=== PATIENT | male | born 1960 | race Caucasian/White ===

== ENCOUNTER 2016-07-06 15:14 | Inpatient (IN) | payer MEDICAID, OTHER ==
[~2016-07-06] VITALS: Ht 182.9 cm; Wt 84.0 kg
[2016-07-06] MEDS ORDERED: LORazepam 2MG/ML-1ML VIAL ONE (15:31)
[2016-07-06] MEDS ORDERED: LORazepam 2MG/ML-1ML VIAL IV ONE ×2 (15:45→18:30)
[2016-07-06 16:11] LABS: Albumin 4.2 g/dL (3.4-5.0); BUN/Creatinine Ratio 4.8; Calcium 8.7 mg/dL (8.5-10.1); Magnesium 2.7 mg/dL (1.6-2.6)
[2016-07-06 16:12] LABS: Basophils # (auto) 0 uL; Basophils % (auto) 0.3 % (0.0-2.0); Eosinophils # (auto) 0 uL; Eosinophils % (auto) 0.2 % (0.0-7.0); Hematocrit 41.3 % (41.0-53.0); Hemoglobin 13.5 g/dL (13.5-17.5); Lymphocytes # (auto) 0.9 uL; Lymphocytes % (auto) 16.8 % (10.0-50.0); Mean Corpuscular Hemoglobin 31.4 pg (28.0-32.0); Mean Corpuscular Hgb Conc. 32.8 g/dL (32.0-36.0); Mean Corpuscular Volume 95.8 fL (80.0-100.0); Mean Platelet Volume 7.2 fL (7.4-10.4); Monocytes # (auto) 0.7 uL; Monocytes % (auto) 12.7 % (0.0-12.0); Neutrophils # (auto) 3.8 uL; Platelet Count (auto) 236 10^3/uL (140-450); Red Cell Distribution Width 14.9 % (11.6-16.0); White Blood Cell 5.4 10^3/uL (4.4-10.8)
[2016-07-06 16:13] LABS: Bilirubin, Total 0.4 mg/dL (0.2-1.0); Total Protein 7.8 g/dL (6.4-8.2)
[2016-07-06 16:17] LABS: Potassium 2.9 mmol/L (3.5-5.1)
[2016-07-06] MEDS ORDERED: LEVOFLOXACIN 500MG 100 ML IV ONE (16:45)
[2016-07-06] MEDS ORDERED: SODIUM CHLORIDE 0.9% 1,000 ML IV ONE (16:45)
[2016-07-06] MEDS ORDERED: ETOMIDATE (2MG/ML) 20ML VIAL IV ONE (17:15)
[2016-07-06] MEDS ORDERED: SUCCINYLCHOLINE CHLORIDE 20 MG/ML 10ML VIAL IV ONE (17:15)
[2016-07-06 17:23] LABS: Lactic Acid 14.6 mmol/L (0.4-2.0)
[2016-07-06 17:24] LABS: REFLEX LACTIC ACID YES OR NO YES
[2016-07-06] MEDS ORDERED: PROPOFOL 100 ML IV ONE (17:39)
[2016-07-06 17:45] VITALS: BP 145/97
[2016-07-06] MEDS: PROPOFOL 100 ML IV SCH (17:47)
[2016-07-06] MEDS: POTASSIUM CHL 20MEQ/100ML 100 ML IV SCH ×2 (18:05→20:10)
[2016-07-06 19:21] LABS: Lactic Acid 10.6 mmol/L (0.4-2.0)
[2016-07-06 19:56] LABS: REFLEX LACTIC ACID YES OR NO YES
[2016-07-06 20:00] VITALS: BP 123/90
[2016-07-06] MEDS ORDERED: LEVETIRACETAM INJ 1,000 MG in SODIUM CHL 0.9% 100 ML IV ONE (20:30)
[2016-07-06] MEDS ORDERED: LORazepam 2MG/ML-1ML VIAL IV PRN (20:30)
[2016-07-06] MEDS ORDERED: PANTOPRAZOLE SODIUM 40 MG/10 ML VIAL IV ONE (20:45)
[2016-07-06] MEDS ORDERED: VANCOMYCIN 1GM/250ML D5W 250 ML IV ONE (21:00)
[2016-07-06] MEDS ORDERED: VANCOMYCIN PER PHARMACY 0 MG IV SCH (21:00)
[2016-07-06 21:14] LABS: Lactic Acid 3.1 mmol/L (0.4-2.0)
[2016-07-06 21:15] LABS: REFLEX LACTIC ACID YES OR NO NO
[2016-07-06] MEDS: SODIUM CHLORIDE 0.9% 1,000 ML IV SCH (21:39)
[2016-07-06] MEDS: ENOXAPARIN SOD 40 MG/0.4 ML SYRINGE SC SCH (21:46)
[2016-07-06 22:15] VITALS: BP 125/85
[2016-07-06] MEDS: MIDAZOLAM DRIP 100 mg/100mL NS 100 ML IV SCH (22:15)
[2016-07-06] MEDS: LEVETIRACETAM INJ 500 MG in SODIUM CHL 0.9% 100 ML IV SCH (22:22)
[2016-07-06] MEDS ORDERED: ONDA4TAB5 PO (22:57)
[2016-07-06] MEDS ORDERED: ALL100T PO (22:57)
[2016-07-06] MEDS ORDERED: PANT40T PO (22:57)
[2016-07-06] MEDS ORDERED: TEMA30CA PO (22:57)
[2016-07-06] MEDS ORDERED: GABA250S2 PO (22:57)
[2016-07-06] MEDS ORDERED: LISI-285 PO (22:57)
[2016-07-06] MEDS ORDERED: NOR5T PO (22:57)
[2016-07-06] MEDS ORDERED: LEV50T PO (22:57)
[2016-07-06] MEDS ORDERED: PANT1INJ3 IV (22:57)
[2016-07-07] VITALS (94 sets, daily range): BP systolic 84–144; BP diastolic 54–89
[2016-07-07] MEDS: PROPOFOL 100 ML IV SCH ×4 (01:19→20:35)
[2016-07-07 04:31] LABS: Basophils # (auto) 0 uL; Basophils % (auto) 0.3 % (0.0-2.0); Eosinophils # (auto) 0 uL; Eosinophils % (auto) 0.2 % (0.0-7.0); Hematocrit 34.3 % (41.0-53.0); Hemoglobin 11.6 g/dL (13.5-17.5); Lymphocytes # (auto) 0.5 uL; Lymphocytes % (auto) 11.1 % (10.0-50.0); Mean Corpuscular Hemoglobin 31.6 pg (28.0-32.0); Mean Corpuscular Hgb Conc. 33.7 g/dL (32.0-36.0); Mean Corpuscular Volume 93.8 fL (80.0-100.0); Mean Platelet Volume 6.6 fL (7.4-10.4); Monocytes # (auto) 0.5 uL; Monocytes % (auto) 11.4 % (0.0-12.0); Neutrophils # (auto) 3.3 uL; Platelet Count (auto) 177 10^3/uL (140-450); Red Cell Distribution Width 14.5 % (11.6-16.0); White Blood Cell 4.2 10^3/uL (4.4-10.8)
[2016-07-07 05:13] LABS: Albumin 3.4 g/dL (3.4-5.0); BUN/Creatinine Ratio 6.3; Bilirubin, Total 0.6 mg/dL (0.2-1.0); Calcium 7.5 mg/dL (8.5-10.1); Potassium 3.2 mmol/L (3.5-5.1); Total Protein 5.8 g/dL (6.4-8.2)
[2016-07-07] MEDS: MIDAZOLAM DRIP 100 mg/100mL NS 100 ML IV SCH ×2 (09:21→20:47)
[2016-07-07] MEDS ORDERED: HCTZ 25 MG TAB NG SCH (10:00)
[2016-07-07] MEDS ORDERED: LISINOPRIL 20 MG TAB NG SCH (10:00)
[2016-07-07] MEDS ORDERED: VANCOMYCIN 1,250 MG in D5W 5% 250 ML IV SCH (10:00)
[2016-07-07] MEDS: SODIUM CHLORIDE 0.9% 1,000 ML IV SCH (10:05)
[2016-07-07] MEDS: LEVETIRACETAM INJ 500 MG in SODIUM CHL 0.9% 100 ML IV SCH ×2 (10:49→22:05)
[2016-07-07] MEDS: ALLOPURINOL 100 MG TAB NG SCH (10:50)
[2016-07-07] MEDS: PANTOPRAZOLE SODIUM 40 MG/10 ML VIAL IV SCH (10:50)
[2016-07-07] MEDS: ENOXAPARIN SOD 40 MG/0.4 ML SYRINGE SC SCH (10:51)
[2016-07-07] MEDS ORDERED: POTASSIUM CHLORIDE 40 MEQ, LIDOCAINE 1% (LOCAL ANESTH.) 4 ML in SODIUM CHL 0.9% 250 ML IV ONE (15:30)
[2016-07-07 21:21] LABS: Urine Bilirubin Negative (Negative); Urine Blood Negative /uL (Negative); Urine Color Colorless (Yellow); Urine Glucose Normal (Normal); Urine Ketone Negative (Negative); Urine Nitrite Negative (Negative); Urine RBC 2 /hpf (0 - 3); Urine Squamous Epithelial Cell FEW /hpf (<5); Urine Urobilinogen Normal (Negative); Urine pH 6.5 (5.0-8.0)
[2016-07-08] VITALS (80 sets, daily range): BP systolic 88–143; BP diastolic 57–100
[2016-07-08] MEDS: PROPOFOL 100 ML IV SCH ×2 (01:48→05:42)
[2016-07-08] MEDS: MIDAZOLAM DRIP 100 mg/100mL NS 100 ML IV SCH (01:48)
[2016-07-08 04:15] LABS: Basophils # (auto) 0 uL; Basophils % (auto) 0.2 % (0.0-2.0); Eosinophils # (auto) 0 uL; Eosinophils % (auto) 0.3 % (0.0-7.0); Hematocrit 33.5 % (41.0-53.0); Hemoglobin 11.1 g/dL (13.5-17.5); Lymphocytes # (auto) 0.7 uL; Lymphocytes % (auto) 15.9 % (10.0-50.0); Mean Corpuscular Hemoglobin 31.3 pg (28.0-32.0); Mean Corpuscular Hgb Conc. 33.1 g/dL (32.0-36.0); Mean Corpuscular Volume 94.5 fL (80.0-100.0); Mean Platelet Volume 7.4 fL (7.4-10.4); Monocytes # (auto) 0.4 uL; Monocytes % (auto) 9.5 % (0.0-12.0); Neutrophils # (auto) 3.1 uL; Neutrophils % (auto) 74.1 % (37.0-80.0); Red Cell Distribution Width 15.2 % (11.6-16.0); White Blood Cell 4.2 10^3/uL (4.4-10.8)
[2016-07-08 04:29] LABS: Platelet Count (auto) 146 10^3/uL (140-450)
[2016-07-08 04:43] LABS: Albumin 3.1 g/dL (3.4-5.0); Bilirubin, Total 0.4 mg/dL (0.2-1.0); Calcium 7.8 mg/dL (8.5-10.1); Total Protein 5.6 g/dL (6.4-8.2)
[2016-07-08] MEDS: PANTOPRAZOLE SODIUM 40 MG/10 ML VIAL IV SCH (09:49)
[2016-07-08] MEDS: ALLOPURINOL 100 MG TAB NG SCH (09:49)
[2016-07-08] MEDS: LEVETIRACETAM INJ 500 MG in SODIUM CHL 0.9% 100 ML IV SCH ×2 (09:49→22:33)
[2016-07-08] MEDS: ENOXAPARIN SOD 40 MG/0.4 ML SYRINGE SC SCH (10:00)
[2016-07-08] MEDS: POTASSIUM CHL 20MEQ/100ML 100 ML IV SCH ×2 (12:43→14:00)
[2016-07-08] MEDS: HYDROcodone-ACET 5/325MG TAB PO PRN (22:52)
[2016-07-09] MEDS ORDERED: TEMAZEPAM 15 MG CAP PO PRN (00:45)
[2016-07-09 04:58] VITALS: BP 119/74
[2016-07-09] MEDS: HYDROcodone-ACET 5/325MG TAB PO PRN ×2 (05:10→11:13)
[2016-07-09 08:22] LABS: Basophils # (auto) 0 uL; Basophils % (auto) 0.3 % (0.0-2.0); Eosinophils # (auto) 0.1 uL; Eosinophils % (auto) 1.4 % (0.0-7.0); Hematocrit 35.1 % (41.0-53.0); Hemoglobin 11.7 g/dL (13.5-17.5); Lymphocytes # (auto) 0.8 uL; Lymphocytes % (auto) 19.1 % (10.0-50.0); Mean Corpuscular Hemoglobin 31.4 pg (28.0-32.0); Mean Corpuscular Hgb Conc. 33.3 g/dL (32.0-36.0); Mean Corpuscular Volume 94.3 fL (80.0-100.0); Mean Platelet Volume 6.7 fL (7.4-10.4); Monocytes # (auto) 0.5 uL; Monocytes % (auto) 12.3 % (0.0-12.0); Neutrophils # (auto) 2.9 uL; Neutrophils % (auto) 66.9 % (37.0-80.0); Platelet Count (auto) 167 10^3/uL (140-450); Red Cell Distribution Width 15.1 % (11.6-16.0); White Blood Cell 4.3 10^3/uL (4.4-10.8)
[2016-07-09 08:39] LABS: BUN/Creatinine Ratio 5.8; Calcium 8.4 mg/dL (8.5-10.1)
[2016-07-09] MEDS: ENOXAPARIN SOD 40 MG/0.4 ML SYRINGE SC SCH (09:20)
[2016-07-09] MEDS: ALLOPURINOL 100 MG TAB NG SCH (09:20)
[2016-07-09] MEDS: PANTOPRAZOLE SODIUM 40 MG/10 ML VIAL IV SCH (09:20)
[2016-07-09 09:24] VITALS: BP 148/83
[2016-07-09] MEDS ORDERED: LEVETIRACETAM 500 MG TAB PO SCH (10:00)
[2016-07-09 13:18] VITALS: BP 139/97
[2016-07-09 13:26] VITALS: BP 113/86
[2016-07-09] MEDS ORDERED: GABAPENTIN 100 MG CAP PO SCH (14:00)
== END 2016-07-09 15:15 | disposition home or self-care (01) | DRG 720 ==
LOC: ER 15:21 → TELE 15:22 → ICU WEST 23:57 → TELE-WESTW 07-08 19:40
PROVIDERS: ADMIT Internal Medicine; ATTEND Family Medicine
PROC: 5A1945Z Respiratory Ventilation, 24-96 Consecutive Hours (ICD-10-PCS; principal; 2016-07-06)
PROC: 0BH18EZ Insertion of Endotracheal Airway into Trachea, Via Natural or Artificial Opening Endoscopic (ICD-10-PCS; 2016-07-06)
DX: A41.9 Sepsis, unspecified organism (principal); J96.00 Acute respiratory failure, unspecified whether with hypoxia or hypercapnia; G04.90 Encephalitis and encephalomyelitis, unspecified; K56.60 Unspecified intestinal obstruction; G40.211 Localization-related (focal) (partial) symptomatic epilepsy and epileptic syndromes with complex partial seizures, intractable, with status epilepticus; E87.8 Other disorders of electrolyte and fluid balance, not elsewhere classified; E87.1 Hypo-osmolality and hyponatremia; E87.6 Hypokalemia; M10.9 Gout, unspecified; I10 Essential (primary) hypertension; E03.9 Hypothyroidism, unspecified; Z98.2 Presence of cerebrospinal fluid drainage device
CPT/HCPCS: 31500; 36415; 36600; 62270; 70450; 71010; 74176; 80048; 80053; 80061; 80320; 81001; 82805; 82962; 83605; 83735; 84443; 85025; 85049; 87040; 87070; 87077; 87081; 87186; 87205; 94002; 94003; 96361; 96365; 96375; 96376; 99291; C9113; J0330; J1956; J2001; J2704; J3480; J7060

== ENCOUNTER 2017-12-09 16:31 | Inpatient (IN) | payer MEDICARE, MEDICAID ==
[~2017-12-09] VITALS: Ht 185.4 cm; Wt 79.4 kg
[~2017-12-09 16:31] MED LIST: ALL100T PO; GABA250S2 PO; HYDR-4683 PO; LEV50T PO; LISI-285 PO; ONDA4TAB5 PO; PANT1INJ3 IV; PANT40T PO; TEMA30CA PO
[2017-12-09] MEDS ORDERED: SODIUM CHLORIDE 0.9% 1,000 ML IVB ONE (16:34)
[2017-12-09] MEDS ORDERED: LORazepam 2MG/ML-1ML VIAL ONE (16:48)
[2017-12-09] MEDS ORDERED: LEVETIRACETAM INJ 1,000 MG in D5W 5% 100 ML IV ONE (17:00)
[2017-12-09 17:24] LABS: Basophils # (auto) 0 uL; Basophils % (auto) 0.1 % (0.0-2.0); Eosinophils # (auto) 0 uL; Hematocrit 33.6 % (41.0-53.0); Hemoglobin 10.8 g/dL (13.5-17.5); Lymphocytes # (auto) 0.4 uL; Lymphocytes % (auto) 6.2 % (10.0-50.0); Mean Corpuscular Hemoglobin 29.6 pg (28.0-32.0); Mean Corpuscular Hgb Conc. 32.2 g/dL (32.0-36.0); Monocytes # (auto) 0.5 uL; Monocytes % (auto) 7.1 % (0.0-12.0); Neutrophils # (auto) 6.1 uL; Neutrophils % (auto) 86.6 % (37.0-80.0); Platelet Count (auto) 219 10^3/uL (140-450); Red Blood Cells 3.65 10^6/uL (4.5-5.90); White Blood Cell 7.1 10^3/uL (4.4-10.8)
[2017-12-09 17:30] LABS: Albumin 3.7 g/dL (3.4-5.0); BUN/Creatinine Ratio 9.4; Calcium 8.3 mg/dL (8.5-10.1); Potassium 4.1 mmol/L (3.5-5.1)
[2017-12-09 17:33] LABS: Bilirubin, Total 0.3 mg/dL (0.2-1.0); Total Protein 6.9 g/dL (6.4-8.2)
[2017-12-09 21:25] LABS: Amphetamine Screen, Urine NEGATIVE (NEGATIVE); Barbiturate Scree,Urine NEGATIVE (NEGATIVE); Benzodiazephine Screen, Urine POSITIVE (NEGATIVE); Cannabinoid Screen, Urine POSITIVE (NEGATIVE); Cocaine Screen, Urine NEGATIVE (NEGATIVE); Opiate Scree,Urine POSITIVE (NEGATIVE); Phencyclidine Screen, Urine NEGATIVE (NEGATIVE)
[2017-12-09] MEDS ORDERED: LORazepam 2MG/ML-1ML VIAL IV PRN ×2 (21:45)
[2017-12-09] MEDS ORDERED: ONDANSETRON HCL 4 MG/2 ML VIAL IV PRN (21:45)
[2017-12-09] MEDS ORDERED: HYDROcodone-ACET 5/325MG TAB PO PRN (21:45)
[2017-12-09] MEDS ORDERED: ACETAMINOPHEN 500 MG TAB PO PRN (21:45)
[2017-12-09] MEDS ORDERED: TEMAZEPAM 15 MG CAP PO PRN (21:45)
[2017-12-09] MEDS ORDERED: GABAPENTIN 300 MG CAP PO SCH (22:00)
[2017-12-09] MEDS ORDERED: ZONISAMIDE 400 MG PO SCH (22:00)
[2017-12-09 22:10] LABS: Urine Bacteria NONE SEEN /hpf (None Seen); Urine Blood TRACE /uL (Negative); Urine Mucus FEW (None Seen); Urine Specific Gravity 1.007 (1.001-1.035); Urine WBC 3 /hpf (0 - 3)
[2017-12-09] MEDS: GABAPENTIN 300 MG CAP PO SCH (22:11)
[2017-12-10] MEDS ORDERED: TEMAZEPAM 15 MG CAP PO PRN (03:45)
[2017-12-10] MEDS ORDERED: SODIUM CHLORIDE 0.9% 1,000 ML IV SCH (03:45)
[2017-12-10 05:45] LABS: Basophils # (auto) 0 uL; Basophils % (auto) 0.3 % (0.0-2.0); Eosinophils # (auto) 0 uL; Hematocrit 30.2 % (41.0-53.0); Hemoglobin 10.3 g/dL (13.5-17.5); Lymphocytes # (auto) 0.6 uL; Lymphocytes % (auto) 13.3 % (10.0-50.0); Mean Corpuscular Hemoglobin 30.3 pg (28.0-32.0); Mean Corpuscular Hgb Conc. 33.9 g/dL (32.0-36.0); Mean Corpuscular Volume 89.2 fL (80.0-100.0); Monocytes # (auto) 0.5 uL; Monocytes % (auto) 11.9 % (0.0-12.0); Neutrophils # (auto) 3.4 uL; Neutrophils % (auto) 74.5 % (37.0-80.0); Platelet Count (auto) 182 10^3/uL (140-450); Red Blood Cells 3.39 10^6/uL (4.5-5.90); Red Cell Distribution Width 13.9 % (11.8-14.3); White Blood Cell 4.6 10^3/uL (4.4-10.8)
[2017-12-10 06:08] LABS: BUN/Creatinine Ratio 11.9; Calcium 8.3 mg/dL (8.5-10.1); Potassium 3.9 mmol/L (3.5-5.1)
[2017-12-10] MEDS: GABAPENTIN 300 MG CAP PO SCH (06:49)
[2017-12-10] MEDS ORDERED: LEVOTHYROXINE SODIUM 50 MCG TAB PO SCH (07:00)
[2017-12-10] MEDS ORDERED: PANTOPRAZOLE 40 MG TAB PO SCH (10:00)
[2017-12-10] MEDS ORDERED: ZONISAMIDE 200 MG PO SCH (10:00)
[2017-12-10] MEDS ORDERED: ALLOPURINOL 100 MG TAB PO SCH (10:00)
[2017-12-10] MEDS ORDERED: LISINOPRIL 20 MG TAB PO SCH (10:00)
[2017-12-10 11:02] VITALS: BP 117/70
[2017-12-10] MEDS ORDERED: THIAMINE INJ 100 MG, MULTIPLE VITAMIN 10 ML, FOLIC ACID 1 MG, MAGNESIUM SULF SDV 50% 8 ... IV SCH ×5 (12:00)
== END 2017-12-10 13:46 | disposition left against medical advice (07) | DRG 101 ==
LOC: EDBD 16:31 → ER 16:34 → OVERFLOW 16:35
PROVIDERS: ADMIT Nurse Practitioner Family; ATTEND Family Medicine
DX: G40.901 Epilepsy, unspecified, not intractable, with status epilepticus (principal); F10.239 Alcohol dependence with withdrawal, unspecified; G03.1 Chronic meningitis; D64.9 Anemia, unspecified; E03.9 Hypothyroidism, unspecified; F02.80 Dementia in other diseases classified elsewhere, unspecified severity, without behavioral disturbance, psychotic disturbance, mood disturbance, and anxiety; F09 Unspecified mental disorder due to known physiological condition; F12.10 Cannabis abuse, uncomplicated; H55.00 Unspecified nystagmus; I10 Essential (primary) hypertension; M10.9 Gout, unspecified; Z79.899 Other long term (current) drug therapy; Z86.61 Personal history of infections of the central nervous system; Z98.2 Presence of cerebrospinal fluid drainage device
CPT/HCPCS: 36415; 70450; 80048; 80053; 80185; 80307; 80320; 81001; 83735; 84443; 85025; 93005; 94761; 96361; 96365; 96367; 99291; J7060

== ENCOUNTER 2018-06-11 11:41 | Emergency (ER) | payer MEDICAID, MEDICARE ==
[~2018-06-11] VITALS: Ht 177.8 cm; Wt 70.3 kg
[2018-06-11 12:38] VITALS: BP 119/88
[2018-06-11] MEDS ORDERED: LIDOCAINE 1% HCL (LOCAL ANESTH.) INJ 20ML MDV ONE (12:42)
[2018-06-11] MEDS ORDERED: HYDROcodone-ACET 5/325MG TAB PO ONE (14:15)
== END 2018-06-11 14:19 | disposition home or self-care (01) ==
LOC: ER 11:45
DX: S01.01XA Laceration without foreign body of scalp, initial encounter (principal); S01.81XA Laceration without foreign body of other part of head, initial encounter; G93.89 Other specified disorders of brain; I10 Essential (primary) hypertension; E07.9 Disorder of thyroid, unspecified; M10.9 Gout, unspecified; Z79.899 Other long term (current) drug therapy; W18.39XA Other fall on same level, initial encounter; Y93.89 Activity, other specified; Y99.8 Other external cause status; Y92.89 Other specified places as the place of occurrence of the external cause
CPT/HCPCS: 12004; 12014; 70450; 99284; J2001

== ENCOUNTER 2018-08-07 18:25 | Emergency (ER) | payer MEDICARE ==
[~2018-08-07] VITALS: Ht 182.9 cm; Wt 65.8 kg
[2018-08-07] MEDS ORDERED: SODIUM CHLORIDE 0.9% 1,000 ML IVB ONE (18:45)
[2018-08-07 19:12] LABS: Basophils # (auto) 0 uL; Basophils % (auto) 0.9 % (0.0-2.0); Eosinophils # (auto) 0 uL; Eosinophils % (auto) 1.6 % (0.0-7.0); Hematocrit 31.1 % (41.0-53.0); Hemoglobin 10.1 g/dL (13.5-17.5); Lymphocytes # (auto) 0.5 uL; Lymphocytes % (auto) 17.7 % (10.0-50.0); Mean Corpuscular Hemoglobin 28.6 pg (28.0-32.0); Mean Corpuscular Hgb Conc. 32.4 g/dL (32.0-36.0); Mean Corpuscular Volume 88.1 fL (80.0-100.0); Monocytes # (auto) 0.3 uL; Monocytes % (auto) 9.1 % (0.0-12.0); Neutrophils # (auto) 2.2 uL; Neutrophils % (auto) 70.7 % (37.0-80.0); Nucleated Red Blood Cells % 0.1 %; Platelet Count (auto) 204 10^3/uL (140-450); Red Blood Cells 3.53 10^6/uL (4.5-5.90); Red Cell Distribution Width 16.1 % (11.8-14.3); White Blood Cell 3.1 10^3/uL (4.4-10.8)
[2018-08-07 19:26] LABS: Albumin 3.5 g/dL (3.4-5.0); Calcium 8.3 mg/dL (8.5-10.1); Potassium 4.2 mmol/L (3.5-5.1)
[2018-08-07 19:30] LABS: BUN/Creatinine Ratio 6.5; Bilirubin, Total 0.3 mg/dL (0.2-1.0); Total Protein 6.9 g/dL (6.4-8.2)
[2018-08-07 21:20] VITALS: BP 152/103
== END 2018-08-07 21:36 | disposition home or self-care (01) ==
LOC: EDBD 18:25 → ER 18:36
DX: G40.909 Epilepsy, unspecified, not intractable, without status epilepticus (principal); K21.9 Gastro-esophageal reflux disease without esophagitis; I10 Essential (primary) hypertension; E07.9 Disorder of thyroid, unspecified; M10.9 Gout, unspecified
CPT/HCPCS: 36415; 70450; 80053; 85025; 93005

== ENCOUNTER 2018-08-07 22:51 | Inpatient (IN) | payer MEDICARE ==
[~2018-08-07] VITALS: Ht 182.9 cm; Wt 72.5 kg
[2018-08-07] MEDS ORDERED: LORazepam 2MG/ML-1ML VIAL IV PRN (23:00)
[2018-08-07] MEDS ORDERED: LEVETIRACETAM INJ 1,000 MG in D5W 5% 100 ML IV ONE (23:00)
[2018-08-07 23:23] LABS: Basophils # (auto) 0 uL; Basophils % (auto) 0.6 % (0.0-2.0); Eosinophils # (auto) 0 uL; Eosinophils % (auto) 0.5 % (0.0-7.0); Hematocrit 34.5 % (41.0-53.0); Lymphocytes # (auto) 0.7 uL; Mean Corpuscular Hemoglobin 28.6 pg (28.0-32.0); Mean Corpuscular Hgb Conc. 31.9 g/dL (32.0-36.0); Mean Corpuscular Volume 89.8 fL (80.0-100.0); Monocytes # (auto) 0.5 uL; Monocytes % (auto) 9.6 % (0.0-12.0); Neutrophils # (auto) 3.5 uL; Neutrophils % (auto) 75.3 % (37.0-80.0); Nucleated Red Blood Cells % 0.1 %; Platelet Count (auto) 228 10^3/uL (140-450); Red Blood Cells 3.84 10^6/uL (4.5-5.90); Red Cell Distribution Width 15.9 % (11.8-14.3); White Blood Cell 4.7 10^3/uL (4.4-10.8)
[2018-08-07 23:41] LABS: Alanine Aminotransferase 21 U/L (16-61); Albumin 3.7 g/dL (3.4-5.0); Anion Gap 16 (5-15); Aspartate Aminotransferase 20 U/L (15-37); BUN/Creatinine Ratio 5.7; Blood Alcohol < 3.0 mg/dL (0-5); Blood Urea Nitrogen 7 mg/dL (7-18); Calcium 8.6 mg/dL (8.5-10.1); Carbon Dioxide 17 mmol/L (21-32); Chloride 101 mmol/L (98-107); GFR African American 79 mL/min; GFR Non-African American 65 mL/min; Glucose 112 mg/dL (74-106); Magnesium 2.1 mg/dL (1.6-2.6); Potassium 4.7 mmol/L (3.5-5.1); Sodium 134 mmol/L (136-145)
[2018-08-07 23:43] LABS: INR 1.03 (0.9-1.15); Partial Thromboplastin Time 26.6 sec (23.78-33.04)
[2018-08-07 23:45] LABS: Alkaline Phosphatase 120 U/L (45-117); Bilirubin, Total 0.3 mg/dL (0.2-1.0); Total Protein 7.6 g/dL (6.4-8.2)
[2018-08-07 23:46] LABS: Phenytoin (Dilantin) 0.5 ug/mL (10-20)
[2018-08-07] MEDS ORDERED: LEVETIRACETAM 500 MG/5ML INJ IV ONE (23:48)
[2018-08-07] MEDS ORDERED: ACETAMINOPHEN 650 MG RECT SUPP PR ONE (23:48)
[2018-08-07 23:49] LABS: Alcohol, Urine < 3.0 mg/dL (0-5); Amphetamine Screen, Urine NEGATIVE (NEGATIVE); Barbiturate Scree,Urine NEGATIVE (NEGATIVE); Benzodiazephine Screen, Urine POSITIVE (NEGATIVE); Cannabinoid Screen, Urine POSITIVE (NEGATIVE); Cocaine Screen, Urine NEGATIVE (NEGATIVE); Opiate Scree,Urine NEGATIVE (NEGATIVE); Phencyclidine Screen, Urine NEGATIVE (NEGATIVE)
[2018-08-08] MEDS ORDERED: ACETAMINOPHEN 650 MG RECT SUPP PR ONE (00:15)
[2018-08-08] MEDS ORDERED: SODIUM CHLORIDE 0.9% 2,000 ML IV ONE (02:15)
[2018-08-08] MEDS ORDERED: cefTRIAXone 1GM/50ML D5W 50 ML IV ONE (02:15)
[2018-08-08] MEDS ORDERED: VANCOMYCIN 1GM/250ML 250 ML IV ONE (02:15)
[2018-08-08] MEDS ORDERED: ONDANSETRON HCL 4 MG/2 ML VIAL IV PRN (02:45)
[2018-08-08] MEDS ORDERED: TEMAZEPAM 15 MG CAP PO PRN (02:45)
[2018-08-08] MEDS ORDERED: LORazepam 2MG/ML-1ML VIAL IV PRN (02:45)
[2018-08-08] MEDS ORDERED: ACETAMINOPHEN 325 MG TAB PO PRN (02:45)
[2018-08-08] MEDS ORDERED: LABETALOL HCL 5 MG/ML ML 20ML VIAL IV ONE (02:45)
[2018-08-08 03:20] LABS: Urine Bacteria NONE SEEN /hpf (None Seen); Urine Blood TRACE /uL (Negative); Urine Mucus FEW (None Seen); Urine Specific Gravity 1.013 (1.001-1.035); Urine WBC 2 /hpf (0 - 3)
[2018-08-08] MEDS: GABAPENTIN 300 MG CAP PO SCH ×2 (06:30→13:57)
[2018-08-08] MEDS: LEVOTHYROXINE SODIUM 50 MCG TAB PO SCH (06:31)
[2018-08-08] MEDS ORDERED: LEVETIRACETAM 500 MG TAB PO SCH (10:00)
[2018-08-08] MEDS: FAMOTIDINE 20 MG TAB PO SCH ×2 (10:23→21:50)
[2018-08-08] MEDS: LISINOPRIL 10 MG TAB PO SCH (10:23)
--- NOTE | 2018-08-08 15:10 | NUR ---
ADMISSION THE PATIENT WAS ADMITTED TO MED/SURG AFTER RECEIVING REPORT FROM THE ER NURSE. THE PATIENT IS ALERT TO SELF AND SITUATION, NO SIGNS OR SYMPTOMS OF DISTRESS. THE PATIENT HAD A CHESTER PLACED IN THE ED, WHICH IS DRAINING YELLOW URINE. THE PATIENT'S BED RAILS ARE PADDED, SEIZURE PRECAUTIONS ARE BEING TAKEN. EDUCATED THE PATIENT ON POC, BUT WILL NEED REORIENTING. THE BED IS IN THE LOWEST, LOCKED POSITION, BED ALARM ON AND CALL LIGHT IS WITHIN REACH. WILL ROUND HOURLY AND PRN. WILL CONTINUE TO MONITOR.
[2018-08-08 17:00] VITALS: BP 106/88
[2018-08-08] MEDS: MULTIPLE VITAMIN 10 ML, MAGNESIUM SULF SDV 50% 8 MEQ in SODIUM CHLORIDE 0.9% 1,000 ML IV SCH (18:00)
[2018-08-08 20:00] VITALS: BP 123/84
[2018-08-08] MEDS: Zonisamide 100 MG CAPSULE PO SCH (21:50)
[2018-08-08] MEDS: GABAPENTIN 400 MG CAP PO SCH (21:50)
[2018-08-08 22:00] VITALS: BP 123/84
[2018-08-09 05:00] VITALS: BP 128/80
[2018-08-09] MEDS: GABAPENTIN 400 MG CAP PO SCH (06:01)
[2018-08-09] MEDS: LEVOTHYROXINE SODIUM 50 MCG TAB PO SCH (06:01)
--- NOTE | 2018-08-09 07:00 | NUR ---
Opening Shift Note Assumed care of patient, awake and alert. No S/S of distress/SOB or pain. Instructed on POC and to call for assist PRN, will continue to monitor for changes Q1hr and PRN.
[2018-08-09 07:25] LABS: Basophils # (auto) 0 uL; Basophils % (auto) 1.2 % (0.0-2.0); Eosinophils # (auto) 0 uL; Hematocrit 29.3 % (41.0-53.0); Hemoglobin 10.1 g/dL (13.5-17.5); Lymphocytes # (auto) 0.9 uL; Lymphocytes % (auto) 25.2 % (10.0-50.0); Mean Corpuscular Hemoglobin 30.1 pg (28.0-32.0); Mean Corpuscular Hgb Conc. 34.5 g/dL (32.0-36.0); Mean Corpuscular Volume 87.1 fL (80.0-100.0); Monocytes # (auto) 0.5 uL; Neutrophils # (auto) 2.2 uL; Neutrophils % (auto) 58.6 % (37.0-80.0); Nucleated Red Blood Cells % 0.1 %; Platelet Count (auto) 207 10^3/uL (140-450); Red Blood Cells 3.36 10^6/uL (4.5-5.90); White Blood Cell 3.7 10^3/uL (4.4-10.8)
[2018-08-09 07:31] LABS: BUN/Creatinine Ratio 7.9; Potassium 3.6 mmol/L (3.5-5.1)
--- NOTE | 2018-08-09 08:20 | NUR ---
patient pulled out his iv when it got caught on his blankets.
--- NOTE | 2018-08-09 08:24 | NUR ---
patient is refusing a new iv until he speaks to the doctor. patient states, "I am going home today." educated patient on importance of iv. patient verbalized understanding.
[2018-08-09 09:00] VITALS: BP 112/67
[2018-08-09] MEDS: Zonisamide 100 MG CAPSULE PO SCH ×3 (10:00→21:21)
--- NOTE | 2018-08-09 10:52 | NUR ---
PT Patient having EEG during morning PT visit. Addendum: 08/09/18 at 1053 by DEAN GARNER PTT Amended: Links added.
[2018-08-09] MEDS: FAMOTIDINE 20 MG TAB PO SCH ×2 (11:47→21:19)
[2018-08-09] MEDS: LISINOPRIL 10 MG TAB PO SCH (11:47)
[2018-08-09] MEDS: HYDROcodone-ACET 10/325MG TAB PO PRN ×3 (11:49→22:02)
[2018-08-09 13:00] VITALS: BP 114/76
[2018-08-09] MEDS: GABAPENTIN 300 MG CAP PO SCH ×2 (15:55→21:19)
[2018-08-09 17:27] VITALS: BP 125/81
[2018-08-09] MEDS: MULTIPLE VITAMIN 10 ML, MAGNESIUM SULF SDV 50% 8 MEQ in SODIUM CHLORIDE 0.9% 1,000 ML IV SCH (17:54)
--- NOTE | 2018-08-09 19:15 | NUR ---
Opening Shift Note Assumed care of patient, awake and alert. No S/S of distress/SOB or pain. Instructed on POC and to call for assist PRN, will continue to monitor for changes Q1hr and PRN. Bed in low position, call castellano with in reach. Denies seizure symptoms.
[2018-08-09 22:00] VITALS: BP_SYST 128; BP_SYST 138; BP_DIAS 77; BP_DIAS 84
[2018-08-10 06:00] VITALS: BP 136/89
[2018-08-10] MEDS: GABAPENTIN 300 MG CAP PO SCH ×3 (06:16→20:23)
[2018-08-10] MEDS: LEVOTHYROXINE SODIUM 50 MCG TAB PO SCH (06:16)
[2018-08-10] MEDS: HYDROcodone-ACET 10/325MG TAB PO PRN ×3 (06:21→20:23)
[2018-08-10 09:00] VITALS: BP 147/104
[2018-08-10] MEDS: Zonisamide 100 MG CAPSULE PO SCH ×2 (09:58→20:24)
[2018-08-10] MEDS: FAMOTIDINE 20 MG TAB PO SCH ×2 (09:58→20:23)
[2018-08-10] MEDS: LISINOPRIL 10 MG TAB PO SCH (09:59)
[2018-08-10] MEDS: ALLOPURINOL 100 MG TAB PO SCH (10:01)
[2018-08-10] MEDS ORDERED: TEMAZEPAM 15 MG CAP PO PRN (15:30)
[2018-08-10 17:00] VITALS: BP 142/76
[2018-08-10] MEDS: MULTIPLE VITAMIN 10 ML, MAGNESIUM SULF SDV 50% 8 MEQ in SODIUM CHLORIDE 0.9% 1,000 ML IV SCH (17:21)
[2018-08-10 22:00] VITALS: BP 131/79
[2018-08-11] MEDS: Zonisamide 100 MG CAPSULE PO SCH ×3 (00:12→10:28)
[2018-08-11 05:06] VITALS: BP 111/62
[2018-08-11] MEDS: GABAPENTIN 300 MG CAP PO SCH (06:15)
[2018-08-11] MEDS: LEVOTHYROXINE SODIUM 50 MCG TAB PO SCH (06:16)
--- NOTE | 2018-08-11 07:30 | NUR ---
OPENING NOTE ASSUMED CARE OF PATIENT. PT IS SITTING ON BED, AWAKE, [id number]. A&O x4. ON ROOM AIR, O2 SATURATION 99%. NO SIGNS OF SOB/DISTRESS NOTED. CHESTER CATH INTACT, PATENT DRAINING YELLOW URINE WITH SEDIMENT. SAFETY PRECAUTIONS IN PLACE INCLUDING, BED SET TO LOWEST POSITION/LOCKED. BEDSIDE RAILS UP X2. CALL LIGHT WITHIN REACH. INSTRUCTED PT TO CALL FOR ASSISTANCE. DISCUSSED POC WITH PT. PT VERBALIZED UNDERSTANDING. WILL CONTINUE TO MONITOR Q 1HR AND PRN.
[2018-08-11 09:01] VITALS: BP 131/87
[2018-08-11] MEDS: ALLOPURINOL 100 MG TAB PO SCH (10:24)
[2018-08-11] MEDS: LISINOPRIL 10 MG TAB PO SCH (10:24)
[2018-08-11] MEDS: FAMOTIDINE 20 MG TAB PO SCH (10:24)
[2018-08-11] MEDS: HYDROcodone-ACET 10/325MG TAB PO PRN (10:32)
--- NOTE | 2018-08-11 12:04 | NUR ---
Marcelo catheter dc'd Order to discontinue Marcelo catheter. Amrcelo dc'd with clean technique following deflation of balloon 9 ml. Patient tolerated well with no complaints of pain. 700 ml of yellow urine. Continue care.
[2018-08-11 12:27] VITALS: BP 125/90
[2018-08-11 12:57] VITALS: BP 118/90
--- NOTE | 2018-08-11 13:16 | NUR ---
Discharge instructions given as ordered. Encourage to follow up with Dr. Maira Rucker, [id number], [place], [place], . All questions and concerns addressed with patient. Patient verbalized understanding. Home medications held in Pharmacy returned to patient, and no vaccines given. IV removed with catheter intact, pressure dressing applied.
--- NOTE | 2018-08-11 13:45 | NUR ---
Patient ambulated to vehicle via wheelchair with all personal belongings, accompanied by staff and family member. No distress noted at time of departure.
== END 2018-08-11 13:45 | disposition home health service (06) | DRG 100 ==
LOC: ER 22:51 → EDBD 22:51 → OVERFLOW 08-08 02:43 → WEST WING 08-08 14:53
PROVIDERS: ADMIT Nurse Practitioner; ATTEND Family Medicine
DX: G40.409 Other generalized epilepsy and epileptic syndromes, not intractable, without status epilepticus (principal); G04.90 Encephalitis and encephalomyelitis, unspecified; G93.41 Metabolic encephalopathy; G93.6 Cerebral edema; I10 Essential (primary) hypertension; M10.9 Gout, unspecified; F03.90 Unspecified dementia, unspecified severity, without behavioral disturbance, psychotic disturbance, mood disturbance, and anxiety; F09 Unspecified mental disorder due to known physiological condition; F12.90 Cannabis use, unspecified, uncomplicated; E03.9 Hypothyroidism, unspecified; I70.0 Atherosclerosis of aorta; K21.9 Gastro-esophageal reflux disease without esophagitis; Z79.899 Other long term (current) drug therapy; Z86.61 Personal history of infections of the central nervous system; Z98.2 Presence of cerebrospinal fluid drainage device; Z88.1 Allergy status to other antibiotic agents
CPT/HCPCS: 36415; 36600; 51702; 70450; 71045; 80048; 80053; 80164; 80185; 80307; 80320; 81001; 82805; 83605; 83735; 85025; 85610; 85730; 87040; 93005; 94761; 95819; 96361; 96365; 96367; G0378; J0696; J7060

== ENCOUNTER 2018-09-08 01:18 | Emergency (ER) | payer MEDICARE ==
[~2018-09-08] VITALS: Ht 177.8 cm; Wt 77.1 kg
[2018-09-08] MEDS ORDERED: LORazepam 2MG/ML-1ML VIAL IV ONE ×3 (01:45→09:00)
[2018-09-08 02:28] LABS: INR 1.03 (0.9-1.15); Partial Thromboplastin Time 24.6 sec (23.78-33.04)
[2018-09-08 02:29] LABS: Alanine Aminotransferase 14 U/L (16-61); Albumin 3.2 g/dL (3.4-5.0); Anion Gap 10 (5-15); Aspartate Aminotransferase 14 U/L (15-37); BUN/Creatinine Ratio 17.2; Blood Alcohol < 3.0 mg/dL (0-5); Blood Urea Nitrogen 17 mg/dL (7-18); Carbon Dioxide 22 mmol/L (21-32); Chloride 101 mmol/L (98-107); GFR African American 100 mL/min; GFR Non-African American 83 mL/min; Glucose 90 mg/dL (74-106); Magnesium 2.2 mg/dL (1.6-2.6); Potassium 4.2 mmol/L (3.5-5.1); Sodium 133 mmol/L (136-145)
[2018-09-08 02:31] LABS: Alkaline Phosphatase 105 U/L (45-117); Bilirubin, Total 0.3 mg/dL (0.2-1.0); Phenytoin (Dilantin) < 0.4 ug/mL (10-20); Total Protein 6.6 g/dL (6.4-8.2); Valproic Acid (Depakene) 4 ug/mL (50-100)
[2018-09-08 02:37] LABS: Basophils # (auto) 0 uL; Basophils % (auto) 0.7 % (0.0-2.0); Eosinophils # (auto) 0.1 uL; Eosinophils % (auto) 2.4 % (0.0-7.0); Hemoglobin 9.4 g/dL (13.5-17.5); Lymphocytes # (auto) 0.7 uL; Lymphocytes % (auto) 22.1 % (10.0-50.0); Mean Corpuscular Hemoglobin 28.9 pg (28.0-32.0); Mean Corpuscular Hgb Conc. 33.5 g/dL (32.0-36.0); Mean Corpuscular Volume 86.1 fL (80.0-100.0); Monocytes # (auto) 0.3 uL; Monocytes % (auto) 9.2 % (0.0-12.0); Neutrophils # (auto) 2.2 uL; Neutrophils % (auto) 65.6 % (37.0-80.0); Platelet Count (auto) 198 10^3/uL (140-450); Red Blood Cells 3.25 10^6/uL (4.5-5.90); Red Cell Distribution Width 16.1 % (11.8-14.3); White Blood Cell 3.3 10^3/uL (4.4-10.8)
[2018-09-08 09:13] LABS: Urine Bacteria NONE SEEN /hpf (None Seen); Urine Blood Negative /uL (Negative); Urine WBC 1 /hpf (0 - 3)
[2018-09-08 09:26] LABS: Alcohol, Urine < 3.0 mg/dL (0-5); Amphetamine Screen, Urine NEGATIVE (NEGATIVE); Barbiturate Scree,Urine NEGATIVE (NEGATIVE); Benzodiazephine Screen, Urine POSITIVE (NEGATIVE); Cannabinoid Screen, Urine POSITIVE (NEGATIVE); Cocaine Screen, Urine NEGATIVE (NEGATIVE); Opiate Scree,Urine NEGATIVE (NEGATIVE); Phencyclidine Screen, Urine NEGATIVE (NEGATIVE)
[2018-09-08] MEDS ORDERED: GABAPENTIN 300 MG CAP PO ONE (12:00)
[2018-09-08 13:17] VITALS: BP 119/84
== END 2018-09-08 13:32 | disposition short-term general hospital (02) ==
LOC: EDBD 01:18 → ER 01:24
DX: S22.019A Unspecified fracture of first thoracic vertebra, initial encounter for closed fracture (principal); S00.93XA Contusion of unspecified part of head, initial encounter; S50.312A Abrasion of left elbow, initial encounter; R56.9 Unspecified convulsions; K21.9 Gastro-esophageal reflux disease without esophagitis; I10 Essential (primary) hypertension; M10.9 Gout, unspecified; W18.39XA Other fall on same level, initial encounter; Y93.89 Activity, other specified; Y92.89 Other specified places as the place of occurrence of the external cause; Y99.8 Other external cause status
CPT/HCPCS: 36415; 51702; 70450; 71045; 72125; 80053; 80164; 80185; 80307; 80320; 81001; 83735; 85025; 85610; 85730; 96374; 96376; 99285; J2060; 51701

== ENCOUNTER 2018-12-07 12:59 | Emergency (ER) | payer MEDICARE ==
[~2018-12-07] VITALS: Ht 177.8 cm; Wt 72.6 kg
[2018-12-07] MEDS ORDERED: LORazepam 2MG/ML-1ML VIAL IV ONE (13:15)
[2018-12-07] MEDS ORDERED: SODIUM CHLORIDE 0.9% 1,000 ML IV ONE (13:48)
[2018-12-07 13:57] LABS: Basophils # (auto) 0 uL; Basophils % (auto) 0.4 % (0.0-2.0); Eosinophils # (auto) 0.1 uL; Hemoglobin 7.8 g/dL (13.5-17.5); Lymphocytes # (auto) 0.4 uL; Monocytes # (auto) 0.4 uL
[2018-12-07 13:59] LABS: Eosinophils % (auto) 2.8 % (0.0-7.0); Hematocrit 24.3 % (41.0-53.0); Lymphocytes % (auto) 13.6 % (10.0-50.0); Mean Corpuscular Hemoglobin 26.4 pg (28.0-32.0); Mean Corpuscular Hgb Conc. 32.2 g/dL (32.0-36.0); Mean Corpuscular Volume 82.1 fL (80.0-100.0); Monocytes % (auto) 12.2 % (0.0-12.0); Neutrophils # (auto) 2.2 uL; Platelet Count (auto) 166 10^3/uL (140-450); Red Blood Cells 2.95 10^6/uL (4.5-5.90); Red Cell Distribution Width 15.5 % (11.8-14.3)
[2018-12-07 14:25] LABS: BUN/Creatinine Ratio 11.1; Calcium 7.7 mg/dL (8.5-10.1); Potassium 3.6 mmol/L (3.5-5.1)
[2018-12-07 14:27] LABS: Bilirubin, Total 0.2 mg/dL (0.2-1.0); Total Protein 5.5 g/dL (6.4-8.2)
[2018-12-07] MEDS ORDERED: cefTRIAXone 1GM/50ML D5W 50 ML IV ONE (16:00)
[2018-12-07] MEDS ORDERED: SODIUM CHLORIDE 0.9% 1,000 ML IV SCH (16:04)
[2018-12-07] MEDS ORDERED: NITROGLYCERIN 0.4 MG SL TAB SL PRN (16:15)
[2018-12-07] MEDS ORDERED: ALBUTEROL SULF 2.5 MG/0.5ML(0.5%) NEB SOLN NEB PRN (16:15)
[2018-12-07] MEDS ORDERED: DEXTROSE (50%) 50ML SYRG IV PRN (16:15)
[2018-12-07] MEDS ORDERED: traMADol HCL 50 MG TAB PO PRN (16:15)
[2018-12-07] MEDS ORDERED: MORPHINE SULF INJ 2 MG/ML SYRINGE 1ML IV PRN (16:15)
[2018-12-07] MEDS ORDERED: ACETAMINOPHEN 500 MG TAB PO PRN (16:15)
[2018-12-07] MEDS ORDERED: LEVETIRACETAM 500 MG TAB PO ONE (16:15)
[2018-12-07] MEDS ORDERED: PROMETHAZINE HCL 25 MG/ML 1ML IV PRN (16:15)
[2018-12-07] MEDS ORDERED: LORazepam 2MG/ML-1ML VIAL IV PRN (16:15)
[2018-12-07] MEDS ORDERED: LACTULOSE 20Gm/30ML SOLN PO PRN (16:15)
[2018-12-07 16:27] VITALS: BP 111/74
[2018-12-07] MEDS ORDERED: ACCU-CHEK COMFORT CURVE STRIP VI SCH (17:00)
[2018-12-07] MEDS ORDERED: InsuLIN REG 1unit/0.01ml Soln (100units/ml) SC SCH (17:00)
[2018-12-07 18:19] VITALS: BP 115/86
[2018-12-07 19:25] LABS: Alcohol, Urine < 3.0 mg/dL (0-5); Amphetamine Screen, Urine NEGATIVE (NEGATIVE); Barbiturate Scree,Urine NEGATIVE (NEGATIVE); Benzodiazephine Screen, Urine NEGATIVE (NEGATIVE); Cannabinoid Screen, Urine NEGATIVE (NEGATIVE); Cocaine Screen, Urine NEGATIVE (NEGATIVE); Opiate Scree,Urine POSITIVE (NEGATIVE)
[2018-12-07 19:33] LABS: Phencyclidine Screen, Urine NEGATIVE (NEGATIVE)
[2018-12-07 19:46] LABS: Urine Bacteria NONE SEEN /hpf (None Seen); Urine Blood Negative /uL (Negative); Urine Specific Gravity 1.005 (1.001-1.035); Urine WBC <1 /hpf (0 - 3)
[2018-12-07] MEDS ORDERED: TEMAZEPAM 15 MG CAP PO SCH (22:00)
[2018-12-07] MEDS ORDERED: GABAPENTIN 300 MG CAP PO SCH (22:00)
[2018-12-07] MEDS ORDERED: LEVETIRACETAM 500 MG TAB PO SCH (22:00)
[2018-12-08] MEDS ORDERED: cefTRIAXone 1GM/50ML D5W 50 ML IV SCH (09:00)
[2018-12-08] MEDS ORDERED: LISINOPRIL 20 MG TAB PO SCH (10:00)
[2018-12-08] MEDS ORDERED: AZITHROMYCIN 500MG/ 250ML 250 ML IV SCH (10:00)
[2018-12-08] MEDS ORDERED: LEVOTHYROXINE SODIUM 50 MCG TAB PO SCH (10:00)
[2018-12-08] MEDS ORDERED: ALLOPURINOL 100 MG TAB PO SCH (10:00)
[2018-12-08] MEDS ORDERED: HCTZ 25 MG TAB PO SCH (10:00)
[2018-12-08] MEDS ORDERED: PANTOPRAZOLE 40 MG TAB PO SCH (10:00)
[2018-12-08] MEDS ORDERED: ENOXAPARIN SOD 40 MG/0.4 ML SYRINGE SC SCH (10:00)
== END 2018-12-07 20:22 | disposition still patient (30) ==
LOC: EDBD 12:59 → ER 12:59 → TELE 15:58 → UNDOADMIN 15:58 → ER 20:22
DX: I63.9 Cerebral infarction, unspecified (principal); I69.398 Other sequelae of cerebral infarction; G40.909 Epilepsy, unspecified, not intractable, without status epilepticus; D50.9 Iron deficiency anemia, unspecified; E87.1 Hypo-osmolality and hyponatremia; J18.1 Lobar pneumonia, unspecified organism; E46 Unspecified protein-calorie malnutrition; Z68.23 Body mass index [BMI] 23.0-23.9, adult; J32.0 Chronic maxillary sinusitis; K21.9 Gastro-esophageal reflux disease without esophagitis; I10 Essential (primary) hypertension; Z79.2 Long term (current) use of antibiotics; Z79.891 Long term (current) use of opiate analgesic; Z79.899 Other long term (current) drug therapy; Z88.1 Allergy status to other antibiotic agents
CPT/HCPCS: 36415; 70450; 71046; 80053; 80307; 81001; 82962; 83036; 83735; 83880; 84443; 85025; 85652; 87040; 93005; 94761; 96361; 96365; 96375; 99285; J0696; J2060; J7030

== ENCOUNTER 2019-02-09 14:22 | Emergency (ER) | payer MEDICARE ==
[~2019-02-09] VITALS: Ht 180.3 cm; Wt 74.8 kg
[2019-02-09 14:22] VITALS: BP 110/77
[~2019-02-09 14:22] MED LIST changes: -HYDR-4683 PO; +HYDR-4833 PO; +ONDA-144 PO; -ONDA4TAB5 PO
[2019-02-09 15:07] LABS: Basophils # (auto) 0 uL; Eosinophils # (auto) 0.1 uL; Lymphocytes # (auto) 0.7 uL; Monocytes # (auto) 0.4 uL; Monocytes % (auto) 10.8 % (0.0-12.0); White Blood Cell 3.3 10^3/uL (4.4-10.8)
[2019-02-09 15:08] LABS: Basophils % (auto) 0.7 % (0.0-2.0); Eosinophils % (auto) 3.1 % (0.0-7.0); Hematocrit 27.7 % (41.0-53.0); Lymphocytes % (auto) 19.8 % (10.0-50.0); Mean Corpuscular Hemoglobin 26.4 pg (28.0-32.0); Mean Corpuscular Hgb Conc. 32.4 g/dL (32.0-36.0); Mean Corpuscular Volume 81.5 fL (80.0-100.0); Neutrophils # (auto) 2.2 uL; Neutrophils % (auto) 65.6 % (37.0-80.0); Platelet Count (auto) 202 10^3/uL (140-450); Red Blood Cells 3.39 10^6/uL (4.5-5.90); Red Cell Distribution Width 17.8 % (11.8-14.3)
[2019-02-09 15:34] LABS: Albumin 3.2 g/dL (3.4-5.0); BUN/Creatinine Ratio 11.6; Potassium 4.5 mmol/L (3.5-5.1)
[2019-02-09 15:37] LABS: Bilirubin, Total 0.2 mg/dL (0.2-1.0); Total Protein 6.5 g/dL (6.4-8.2)
== END 2019-02-09 16:12 | disposition left against medical advice (07) ==
LOC: EDBD 14:22 → ER 14:26
DX: G40.909 Epilepsy, unspecified, not intractable, without status epilepticus (principal); K21.9 Gastro-esophageal reflux disease without esophagitis; M10.9 Gout, unspecified; I10 Essential (primary) hypertension; E07.9 Disorder of thyroid, unspecified
CPT/HCPCS: 36415; 80053; 85025; 94761

== ENCOUNTER 2019-02-27 16:41 | Emergency (ER) | payer MEDICARE ==
[~2019-02-27] VITALS: Ht 182.9 cm; Wt 83.9 kg
[2019-02-27 16:56] VITALS: BP 93/64
[2019-02-27 17:22] LABS: Basophils # (auto) 0 uL; Eosinophils # (auto) 0.1 uL; Monocytes # (auto) 0.3 uL; Monocytes % (auto) 9.5 % (0.0-12.0); Red Cell Distribution Width 17.7 % (11.8-14.3); White Blood Cell 3.3 10^3/uL (4.4-10.8)
[2019-02-27 17:24] LABS: Basophils % (auto) 0.7 % (0.0-2.0); Eosinophils % (auto) 3.3 % (0.0-7.0); Hematocrit 30.4 % (41.0-53.0); Hemoglobin 9.7 g/dL (13.5-17.5); Lymphocytes # (auto) 0.4 uL; Lymphocytes % (auto) 12.9 % (10.0-50.0); Mean Corpuscular Hemoglobin 26.3 pg (28.0-32.0); Mean Corpuscular Hgb Conc. 31.9 g/dL (32.0-36.0); Mean Corpuscular Volume 82.3 fL (80.0-100.0); Neutrophils # (auto) 2.5 uL; Neutrophils % (auto) 73.6 % (37.0-80.0); Nucleated Red Blood Cells % 0.1 %; Platelet Count (auto) 183 10^3/uL (140-450); Red Blood Cells 3.69 10^6/uL (4.5-5.90)
[2019-02-27 17:39] LABS: Albumin 3.4 g/dL (3.4-5.0); Anion Gap 7 (5-15); Blood Alcohol < 3.0 mg/dL (0-5); Blood Urea Nitrogen 10 mg/dL (7-18); Calcium 8.1 mg/dL (8.5-10.1); Carbon Dioxide 24 mmol/L (21-32); Chloride 106 mmol/L (98-107); Glucose 93 mg/dL (74-106); Potassium 4.4 mmol/L (3.5-5.1); Sodium 137 mmol/L (136-145)
[2019-02-27 17:44] LABS: Alanine Aminotransferase 8 U/L (16-61); Alkaline Phosphatase 105 U/L (45-117); Aspartate Aminotransferase 5 U/L (15-37); Bilirubin, Total 0.3 mg/dL (0.2-1.0); GFR African American 88 mL/min; GFR Non-African American 72 mL/min; Total Protein 6.5 g/dL (6.4-8.2)
[2019-02-27 19:08] LABS: Acetaminophen 3.5 ug/mL (10-30); Salicylate < 1.7 mg/dL (2.8-20.0)
== END 2019-02-27 18:10 | disposition left against medical advice (07) ==
LOC: ER 16:41 → EDBD 16:41 → ER 18:10
DX: R41.82 Altered mental status, unspecified (principal); Z53.21 Procedure and treatment not carried out due to patient leaving prior to being seen by health care provider
CPT/HCPCS: 36415; 80053; 80320; 80329; 84484; 85025; 93005

== ENCOUNTER 2019-05-03 10:10 | Inpatient (IN) | payer MEDICARE ==
[~2019-05-03] VITALS: Ht 180.3 cm; Wt 91.4 kg
[2019-05-03] MEDS ORDERED: LORazepam 2MG/ML-1ML VIAL ONE (10:42)
[2019-05-03] MEDS ORDERED: LORazepam 2MG/ML-1ML VIAL IV ONE ×2 (10:45→14:00)
[2019-05-03 11:17] LABS: Basophils # (auto) 0 uL; Eosinophils # (auto) 0 uL; Lymphocytes # (auto) 0.3 uL; Monocytes # (auto) 0.2 uL; Nucleated Red Blood Cells % 0.1 %
[2019-05-03 11:19] LABS: Basophils % (auto) 0.5 % (0.0-2.0); Hematocrit 33.7 % (41.0-53.0); Hemoglobin 10.9 g/dL (13.5-17.5); Lymphocytes % (auto) 4.6 % (10.0-50.0); Mean Corpuscular Hemoglobin 27.2 pg (28.0-32.0); Mean Corpuscular Hgb Conc. 32.2 g/dL (32.0-36.0); Mean Corpuscular Volume 84.3 fL (80.0-100.0); Monocytes % (auto) 3.3 % (0.0-12.0); Neutrophils # (auto) 5.6 uL; Neutrophils % (auto) 91.6 % (37.0-80.0); Platelet Count (auto) 263 10^3/uL (140-450); Red Cell Distribution Width 17.8 % (11.8-14.3); White Blood Cell 6.1 10^3/uL (4.4-10.8)
[2019-05-03 11:21] LABS: Urine Amorphous Crystal FEW /hpf (None Seen); Urine Bacteria NONE SEEN /hpf (None Seen); Urine Blood Negative /uL (Negative); Urine Hyaline Cast FEW /lpf (0 - 2); Urine Mucus FEW (None Seen); Urine Specific Gravity 1.022 (1.001-1.035); Urine WBC 1 /hpf (0 - 3)
[2019-05-03 11:32] LABS: Alcohol, Urine < 3.0 mg/dL (0-5); Amphetamine Screen, Urine NEGATIVE (NEGATIVE); Barbiturate Scree,Urine NEGATIVE (NEGATIVE); Benzodiazephine Screen, Urine NEGATIVE (NEGATIVE); Cannabinoid Screen, Urine POSITIVE (NEGATIVE); Cocaine Screen, Urine NEGATIVE (NEGATIVE); Phencyclidine Screen, Urine NEGATIVE (NEGATIVE)
[2019-05-03 11:33] LABS: Albumin 3.6 g/dL (3.4-5.0); Anion Gap 11 (5-15); BUN/Creatinine Ratio 6.4; Blood Alcohol < 3.0 mg/dL (0-5); Blood Urea Nitrogen 10 mg/dL (7-18); Calcium 8.4 mg/dL (8.5-10.1); Carbon Dioxide 21 mmol/L (21-32); Chloride 103 mmol/L (98-107); GFR African American 59 mL/min; GFR Non-African American 49 mL/min; Glucose 134 mg/dL (74-106); INR 1.14 (0.9-1.15); Magnesium 2.5 mg/dL (1.6-2.6); Partial Thromboplastin Time 22.5 sec (23.64-32.05); Potassium 3.4 mmol/L (3.5-5.1)
[2019-05-03 11:37] LABS: Lactic Acid w/Reflex 4.3 mmol/L (0.4-2.0)
[2019-05-03 11:39] LABS: Opiate Scree,Urine POSITIVE (NEGATIVE)
[2019-05-03 11:41] LABS: Alanine Aminotransferase 10 U/L (16-61); Alkaline Phosphatase 153 U/L (45-117); Bilirubin, Total 0.3 mg/dL (0.2-1.0); Total Protein 7.4 g/dL (6.4-8.2)
[2019-05-03] MEDS ORDERED: SODIUM CHLORIDE 0.9% 1,000 ML IV ONE (12:30)
[2019-05-03 12:56] LABS: Sodium 135 mmol/L (136-145)
[2019-05-03 15:09] LABS: Aspartate Aminotransferase 7 U/L (15-37)
[2019-05-03] MEDS ORDERED: cefTRIAXone 1GM/50ML D5W 50 ML IV ONE (15:15)
[2019-05-03] MEDS ORDERED: traMADol HCL 50 MG TAB PO PRN (15:15)
[2019-05-03] MEDS ORDERED: ACETAMINOPHEN 500 MG TAB PO PRN (15:15)
[2019-05-03] MEDS ORDERED: LACTULOSE 20Gm/30ML SOLN PO PRN (15:15)
[2019-05-03] MEDS ORDERED: PROMETHAZINE HCL 25 MG/ML 1ML IV PRN (15:15)
[2019-05-03] MEDS ORDERED: TEMAZEPAM 15 MG CAP PO PRN (15:15)
[2019-05-03] MEDS ORDERED: DEXTROSE (50%) 50ML SYRG IV PRN (15:15)
[2019-05-03] MEDS ORDERED: NITROGLYCERIN 0.4 MG SL TAB SL PRN (15:15)
[2019-05-03] MEDS ORDERED: LORazepam 2MG/ML-1ML VIAL IV PRN (15:15)
[2019-05-03] MEDS ORDERED: MORPHINE SULFATE 4 MG/ML SYR/VIAL IV PRN (15:15)
[2019-05-03] MEDS ORDERED: LABETALOL HCL 5 MG/ML ML 20ML VIAL IV PRN (15:15)
[2019-05-03] MEDS ORDERED: MORPHINE SULF INJ 2 MG/ML SYRINGE 1ML IV PRN (15:15)
[2019-05-03 16:10] LABS: Amylase 83 U/L (25-115); Lipase 105 U/L (73-393)
[2019-05-03 16:13] LABS: Creatine Kinase IFCC 126 U/L (39-308)
[2019-05-03] MEDS: SODIUM CHLORIDE 0.9% 1,000 ML IV SCH (16:38)
[2019-05-03] MEDS: ACCU-CHEK COMFORT CURVE STRIP VI SCH (17:00)
[2019-05-03] MEDS: GABAPENTIN 400 MG CAP PO SCH (17:00)
[2019-05-03] MEDS: InsuLIN REG 1unit/0.01ml Soln (100units/ml) SC SCH ×2 (17:00→22:00)
[2019-05-03] MEDS ORDERED: HYDROcodone-ACET 5/325MG TAB PO PRN (17:00)
[2019-05-03 18:28] LABS: Urine Amorphous Crystal MOD /hpf (None Seen); Urine Bacteria NONE SEEN /hpf (None Seen); Urine Blood TRACE /uL (Negative); Urine Budding Yeast MODERATE /hpf (None Seen); Urine Hyaline Cast MOD /lpf (0 - 2); Urine Mucus FEW (None Seen); Urine Specific Gravity 1.019 (1.001-1.035); Urine WBC 1 /hpf (0 - 3)
[2019-05-03 21:25] VITALS: BP 129/85
--- NOTE | 2019-05-03 21:25 | NUR ---
Telemetry admit from ER YAELTEE admitted to Telemetry unit after SBAR received. Patient oriented to Nesha Correa, RN primary RN, unit, room, bed, and unit policies regarding patient care and visiting hours. Patient now on continuous telemetry monitoring, tele box # 29 and telemetry reading on arrival to unit is SR. Patient on room air, weighed by bedscale and encouraged to call if they need something. All questions and concerns addressed, patient verbalized understanding. Note: Fall and safety and seizure precautions in place. Call light within reach. Patient was noted to have BM. Patient cleaned, partial linen change done with assist from DEPUTY CLERK OF COURT. Patient repositioned in bed for comfort, tolerated well.
[2019-05-03] MEDS: ZONISAMIDE 200 MG PO SCH (22:00)
--- NOTE | 2019-05-03 23:00 | NUR ---
WEAPON Pocket knife was found among patient's personal belongings. Pocket knife given to security staff for safekeeping.
--- NOTE | 2019-05-03 23:30 | NUR ---
ADMISSION Called and spoke with patient's brother Lang for admission questions. Informed Lang that patient's medication Zonisamide needed to be brought in from home for administration and that patient's pocket knife is being held for safekeeping. Lang verbalized understanding and agreement. Will inform day shift RN
[2019-05-04] MEDS ORDERED: GABAPENTIN 400 MG CAP ONE (00:31)
[2019-05-04] MEDS: ACCU-CHEK COMFORT CURVE STRIP VI SCH ×2 (00:39→06:16)
[2019-05-04] MEDS: GABAPENTIN 400 MG CAP PO SCH ×3 (00:40→16:43)
[2019-05-04] MEDS: SODIUM CHLORIDE 0.9% 1,000 ML IV SCH ×2 (01:03→10:50)
[2019-05-04] MEDS ORDERED: ZONI1POW2 XX (04:01)
[2019-05-04] MEDS ORDERED: TOPI25CA5 PO (04:01)
[2019-05-04] MEDS ORDERED: PROP60CA34 PO (04:01)
[2019-05-04] MEDS ORDERED: ONDA-143 PO (04:01)
[2019-05-04] MEDS ORDERED: PHE100C PO (04:01)
[2019-05-04] MEDS ORDERED: SUMA50TA16 PO (04:01)
[2019-05-04] MEDS ORDERED: GABA100C9 PO (04:01)
[2019-05-04] MEDS ORDERED: HYDR-531 PO (04:01)
[2019-05-04 05:20] VITALS: BP 125/80
[2019-05-04] MEDS: InsuLIN REG 1unit/0.01ml Soln (100units/ml) SC SCH (06:16)
--- NOTE | 2019-05-04 06:16 | NUR ---
REFUSE Entered room to check patient's blood sugar at this time. When patient was asked to lower arm so wrist band can be scanned, patient raising voice "I saw it already! I saw it already! Get out of here!" Patient was explained that wrist band needed to be scanned for blood sugar check, patient still screaming "I saw it already!" Patient was asked why he was raising his voice, patient stated "Because I saw it already! Get out of here!" Blood sugar not checked at this time. Will inform day shift RN
[2019-05-04] MEDS ORDERED: GABAPENTIN 400 MG CAP PO SCH (06:45)
--- NOTE | 2019-05-04 07:00 | NUR ---
PHARMACY Called and spoke with pharmacist regarding new Gabapentin medication schedule. Informed pharmacy that patient received 1200mg of Gabapentin at 0100 (see emar) and asked if it was safe to administer 400mg of Gabapentin at 0645. Pharmacist stated not safe and will change scheduling of medication. Will inform day shift RN
--- NOTE | 2019-05-04 07:30 | NUR ---
Opening Shift Note Assuming care of patient at this time. Patient is awake. Patient does not respond to verbal commands at this time. Bed is locked and lowered with side rails up x2. Instructed patient on the plan of care for today and to call for assistance as needed. Patient does not verbalize understanding. Will continue to round hourly and as needed. Call light within reach.
[2019-05-04] MEDS ORDERED: cefTRIAXone 1GM/50ML D5W 50 ML IV SCH (09:00)
[2019-05-04] MEDS ORDERED: ENOXAPARIN SOD 40 MG/0.4 ML SYRINGE SC SCH (10:00)
--- NOTE | 2019-05-04 10:07 | NUR ---
patient refused 0900 vitals
[2019-05-04] MEDS ORDERED: LEVOTHYROXINE SODIUM 50 MCG TAB PO ONE (10:45)
[2019-05-04] MEDS: THIAMINE 100mg/ml INJ (200mg/2ml VIAL) IV SCH (10:49)
[2019-05-04] MEDS: PANTOPRAZOLE 40 MG TAB PO SCH (10:49)
[2019-05-04] MEDS: ASPirin 81 mg TAB PO SCH (10:49)
[2019-05-04] MEDS: ZONISAMIDE 200 MG PO SCH (10:58)
--- NOTE | 2019-05-04 12:05 | NUR ---
EEG COMPLETED AT BEDSIDE. ALBERTO ROQUE.
[2019-05-04 13:00] VITALS: BP 120/80
--- NOTE | 2019-05-04 14:19 | NUR ---
assessment Patient is a 59 year old male who is confused. I have left a message for patients brother Lang to return my call. Waiting demolition expert back now. Addendum: 05/04/19 at 1421 by Nicole MILNER Amended: Links added.
--- NOTE | 2019-05-04 16:29 | NUR ---
D/C Planning Per SS consult for SNF placement. Information and choice letter was given to Pt brothmariela Croft via phone. Pt brother does not have a provider preference. I informed him order will be [facility]ed to [facility]. Vernell from [facility] advised me they are unable to meet patient needs at the moment. I will followed up with [facility] tomorrow morning 05/05/19.
[2019-05-04 17:00] VITALS: BP 130/82
--- NOTE | 2019-05-04 19:35 | NUR ---
Opening Shift Note Assumed care of patient, awake and orientated to self. No S/S of distress/SOB or pain. Fall, seizure, and safety precautions in place. Call light within reach. Instructed on POC and to call for assist PRN, will continue to monitor for changes Q1hr and PRN.
--- NOTE | 2019-05-04 19:39 | NUR ---
Closing Shift Note Patient resting in bed. No distress noted. Report given. Will endorse care to the shift production supervisor RN.
[2019-05-04] MEDS: Zonisamide 100 MG CAPSULE PO SCH (21:21)
[2019-05-04 21:50] VITALS: BP 123/78
[2019-05-05] MEDS: SODIUM CHLORIDE 0.9% 1,000 ML IV SCH (00:09)
[2019-05-05] MEDS: GABAPENTIN 400 MG CAP PO SCH ×3 (00:09→17:08)
[2019-05-05 05:57] VITALS: BP 123/84
[2019-05-05] MEDS: LEVOTHYROXINE SODIUM 50 MCG TAB PO SCH (06:11)
[2019-05-05 07:05] LABS: Basophils # (auto) 0 uL; Eosinophils # (auto) 0 uL; Lymphocytes # (auto) 0.6 uL; Monocytes # (auto) 0.3 uL; Neutrophils # (auto) 2.9 uL; White Blood Cell 3.8 10^3/uL (4.4-10.8)
[2019-05-05 07:08] LABS: Basophils % (auto) 0.3 % (0.0-2.0); Eosinophils % (auto) 0.7 % (0.0-7.0); Hematocrit 27.7 % (41.0-53.0); Hemoglobin 9.2 g/dL (13.5-17.5); Lymphocytes % (auto) 15.4 % (10.0-50.0); Mean Corpuscular Hemoglobin 27.6 pg (28.0-32.0); Mean Corpuscular Hgb Conc. 33.1 g/dL (32.0-36.0); Mean Corpuscular Volume 83.3 fL (80.0-100.0); Monocytes % (auto) 7.9 % (0.0-12.0); Neutrophils % (auto) 75.7 % (37.0-80.0); Platelet Count (auto) 164 10^3/uL (140-450); Red Blood Cells 3.32 10^6/uL (4.5-5.90); Red Cell Distribution Width 17.1 % (11.8-14.3)
[2019-05-05 07:24] LABS: Calcium 8.2 mg/dL (8.5-10.1); Potassium 3.3 mmol/L (3.5-5.1)
--- NOTE | 2019-05-05 07:25 | NUR ---
Opening shift note Assumed care of patient from senior clinical data coordinator nurse. Patient is alert and orientedx2. Patient was updated on the plan of care and verbalizes understanding. Seizure precautions in place. bed in the lowest position, side rails upx2, and call light in reach. Patient encouraged to call for assistance.
[2019-05-05 07:27] LABS: BUN/Creatinine Ratio 10.8
[2019-05-05 09:00] VITALS: BP 136/84
[2019-05-05] MEDS: ASPirin 81 mg TAB PO SCH (10:00)
[2019-05-05] MEDS: Zonisamide 100 MG CAPSULE PO SCH ×2 (10:06→21:12)
[2019-05-05] MEDS: THIAMINE 100mg/ml INJ (200mg/2ml VIAL) IV SCH (10:06)
[2019-05-05] MEDS: PANTOPRAZOLE 40 MG TAB PO SCH (10:06)
[2019-05-05] MEDS: ALLOPURINOL 100 MG TAB PO SCH (10:09)
--- NOTE | 2019-05-05 10:50 | NUR ---
D/C Planning Followed up call to [place] and [facility]. Per Nikky from [facility] Ph:) Pt needs a 3 qualifying stay and can be accepted tomorrow 05/06/19 to room [address] accepting MD Dr. Dumont. Informed Dr. Ba and ALBERTO Dunne. Will arrange transportation upon d/c. Addendum: 05/05/19 at 1052 by JOSÉ NIEVES SS Amended: Links added.
[2019-05-05] MEDS ORDERED: POTASSIUM CHL 20 Meq TABLET PO ONE (11:00)
--- NOTE | 2019-05-05 11:08 | NUR ---
Marcelo catheter dc'd Order to discontinue Marcelo catheter. Marcelo dc'd with clean technique following deflation of balloon. Patient tolerated well with no complaints of pain.
--- NOTE | 2019-05-05 12:03 | NUR ---
Physical Therapy at bedside
[2019-05-05 13:00] VITALS: BP 135/87
[2019-05-05 17:02] VITALS: BP 139/82
--- NOTE | 2019-05-05 19:25 | NUR ---
Closing Shift note Care endorsed to computer aided design technician RN.
--- NOTE | 2019-05-05 19:35 | NUR ---
Opening Shift Note Assumed care of patient, AOx4. No S/S of distress/SOB or pain. Seizure, fall, and safety precautions in place. Call light within reach. Instructed on POC and to call for assist PRN, will continue to monitor for changes Q1hr and PRN.
[2019-05-05 22:50] VITALS: BP 138/82
--- NOTE | 2019-05-05 23:05 | NUR ---
Stable Tachy Patient was noted on monitor to be in tachycardia. Upon entering room, patient was found in bathroom in no sign/symptom of distress, respirations even and unlabored. Patient said he "feels okay, just needed to get up to use the bathroom". Upon reassessment of vitals, patient now Sinus Rhythm. Will continue to monitor.
[2019-05-06] MEDS: GABAPENTIN 400 MG CAP PO SCH ×2 (00:08→08:42)
--- NOTE | 2019-05-06 03:31 | NUR ---
[place] Received call from [facility] stating heart rate in 130's. Entered room to assess patient, found him sitting on toilet, attempting to have BM. Patient denies chest pain / SOB at this time. Patient states, "I'm okay". Will continue to monitor.
[2019-05-06 05:47] VITALS: BP 136/95
[2019-05-06] MEDS: LEVOTHYROXINE SODIUM 50 MCG TAB PO SCH (06:09)
--- NOTE | 2019-05-06 07:04 | NUR ---
OPENING SHIFT NOTE Assumed care of patient from assistant shift supervisor nurse. patient is awake, sitting up in bed, alert and oriented x4, no signs of distress noted. patient was updated on the plan of care and verbalized understanding. bed in the lowest position, side rails up x2, call light is in reach. patient was encouraged to call for assistance.
[2019-05-06 08:39] VITALS: BP 141/85
[2019-05-06] MEDS ORDERED: MULTIPLE VITAMIN TAB PO SCH (10:00)
[2019-05-06] MEDS: ALLOPURINOL 100 MG TAB PO SCH (10:32)
[2019-05-06] MEDS: Zonisamide 100 MG CAPSULE PO SCH (10:32)
[2019-05-06] MEDS: PANTOPRAZOLE 40 MG TAB PO SCH (10:32)
[2019-05-06] MEDS: ASPirin 81 mg TAB PO SCH (10:32)
--- NOTE | 2019-05-06 11:00 | NUR ---
re-assessment Patient is more clear today. Patient informed me prior to admission he lived with his brother Lang and was independent. Per patient he has a fww and a cane for home use. Patient has been informed about his consult for SNF. Patient has agreed to SNF for rehab. I informed patient he has a right to speak to a school social worker regarding all care. I informed patient he has a right to participate in any and all discharge planning. Patient does not have a POA and advanced directive. I have offered patient information on POA and advanced directives. I informed the patient the advantages and benefits of having an Advanced Directive. Patient verbalized understanding and agreed to discharge plan. Addendum: 05/06/19 at 1613 by Nicole MILNER Amended: Links added.
--- NOTE | 2019-05-06 11:46 | NUR ---
D/C Planning Followed up call to [facility]:) spoke to Rona. Informed Rona patient will be discharging to facility today. Per Rona room has been changed to room 1b and accepting MD Dr. Dumont. [facility] transport Ph:) will picking belt operator patient at 14:00 via wheelchair. Informed ALBERTO Dunne. Addendum: 05/06/19 at 1150 by JOSÉ NIEVES SS Amended: Links added.
[2019-05-06 13:27] VITALS: BP 141/85
--- NOTE | 2019-05-06 13:44 | NUR ---
Brother notified Brother Lang is notified that patient is being discharger to [facility] room 1B and verbalizes understanding. Brother stated that he already picked up patient's pocket knife.
--- NOTE | 2019-05-06 13:55 | NUR ---
Report Given Report given to Ibis at [facility].
--- NOTE | 2019-05-06 14:22 | NUR ---
Discharge Discharge instructions given as ordered. Encourage to follow up with PMD as instructed. All questions and concerns addressed. Patient verbalized understanding. Medication reconciliation form completed and copy given to patient. Home medications held in Pharmacy returned to patient. IV removed with catheter intact, pressure dressing applied, patient tolerated well. Telemetry unit returned to ICU. [facility] received patient, all belongings sent with patient. No distress noted at time of departure.
== END 2019-05-06 14:22 | DRG 92 ==
LOC: EDBD 10:10 → ER 10:18 → CENTRAL 10:19 → ER 21:19 → TELE-CENTR 23:01
PROVIDERS: ADMIT Internal Medicine; ATTEND Internal Medicine
DX: G92 Toxic encephalopathy (principal); G91.9 Hydrocephalus, unspecified; E87.1 Hypo-osmolality and hyponatremia; G40.901 Epilepsy, unspecified, not intractable, with status epilepticus; E87.6 Hypokalemia; F02.80 Dementia in other diseases classified elsewhere, unspecified severity, without behavioral disturbance, psychotic disturbance, mood disturbance, and anxiety; D64.9 Anemia, unspecified; S09.90XA Unspecified injury of head, initial encounter; M10.9 Gout, unspecified; K21.9 Gastro-esophageal reflux disease without esophagitis; I10 Essential (primary) hypertension; R73.9 Hyperglycemia, unspecified; K59.00 Constipation, unspecified; M19.90 Unspecified osteoarthritis, unspecified site; E03.9 Hypothyroidism, unspecified; M48.00 Spinal stenosis, site unspecified; F12.90 Cannabis use, unspecified, uncomplicated; E86.0 Dehydration; G62.9 Polyneuropathy, unspecified; W18.39XA Other fall on same level, initial encounter; Y93.89 Activity, other specified; Z98.2 Presence of cerebrospinal fluid drainage device; Y92.89 Other specified places as the place of occurrence of the external cause; Y99.8 Other external cause status; Z88.0 Allergy status to penicillin; Z88.1 Allergy status to other antibiotic agents; Z86.73 Personal history of transient ischemic attack (TIA), and cerebral infarction without residual deficits; Z79.899 Other long term (current) drug therapy
CPT/HCPCS: 36415; 70450; 71045; 74176; 80048; 80053; 80307; 80320; 81001; 82150; 82550; 82962; 83036; 83605; 83690; 83735; 84484; 85025; 85610; 85652; 85730; 87040; 87086; 93005; 95819; 97116; 97530; 99291; G0378; J0696

== ENCOUNTER 2019-08-07 13:22 | Inpatient (IN) | payer MEDICARE, OTHER ==
[~2019-08-07] VITALS: Ht 177.8 cm; Wt 72.3 kg
[~2019-08-07 13:22] MED LIST changes: +GABA100C9 PO; -GABA250S2 PO; -HYDR-4833 PO; +HYDR-531 PO; +ONDA-143 PO; -ONDA-144 PO; -PANT1INJ3 IV; -PANT40T PO; +PHE100C PO; +PROP60CA34 PO; +SUMA50TA16 PO; -TEMA30CA PO; +TOPI25CA5 PO; +ZONI1POW2 XX
[2019-08-07 16:28] LABS: Basophils # (auto) 0 uL; Basophils % (auto) 0.6 % (0.0-2.0); Eosinophils # (auto) 0 uL; Eosinophils % (auto) 0.3 % (0.0-7.0); Hematocrit 34.8 % (41.0-53.0); Hemoglobin 11.3 g/dL (13.5-17.5); Lymphocytes # (auto) 0.6 uL; Lymphocytes % (auto) 14.1 % (10.0-50.0); Mean Corpuscular Hemoglobin 28.7 pg (28.0-32.0); Mean Corpuscular Hgb Conc. 32.4 g/dL (32.0-36.0); Mean Corpuscular Volume 88.6 fL (80.0-100.0); Monocytes # (auto) 0.3 uL; Monocytes % (auto) 7.8 % (0.0-12.0); Neutrophils # (auto) 3.4 uL; Neutrophils % (auto) 77.2 % (37.0-80.0); Platelet Count (auto) 204 10^3/uL (140-450); Red Blood Cells 3.93 10^6/uL (4.5-5.90); White Blood Cell 4.4 10^3/uL (4.4-10.8)
[2019-08-07 16:40] LABS: Calcium 8.1 mg/dL (8.5-10.1); Chloride 106 mmol/L (98-107); Potassium 3.9 mmol/L (3.5-5.1); Sodium 136 mmol/L (136-145)
[2019-08-07 16:44] LABS: Alanine Aminotransferase 15 U/L (16-61); Albumin 3.3 g/dL (3.4-5.0); Anion Gap 7 (5-15); Aspartate Aminotransferase 10 U/L (15-37); BUN/Creatinine Ratio 7.3; Blood Alcohol < 3.0 mg/dL (0-5); Blood Urea Nitrogen 6 mg/dL (7-18); Carbon Dioxide 23 mmol/L (21-32); GFR African American 124 mL/min; GFR Non-African American 103 mL/min; Glucose 98 mg/dL (74-106); Red Cell Distribution Width 21.7 % (11.8-14.3)
[2019-08-07 16:47] LABS: Alkaline Phosphatase 107 U/L (45-117); Bilirubin, Total 0.3 mg/dL (0.2-1.0); Total Protein 6.4 g/dL (6.4-8.2)
[2019-08-07] MEDS ORDERED: LORazepam 2MG/ML-1ML VIAL IV ONE (19:45)
[2019-08-08] MEDS ORDERED: MORPHINE SULFATE 4 MG/ML SYR/VIAL IV PRN
[2019-08-08] MEDS ORDERED: ONDANSETRON HCL 4 MG/2 ML VIAL IV PRN
[2019-08-08] MEDS ORDERED: TEMAZEPAM 15 MG CAP PO PRN
[2019-08-08] MEDS ORDERED: LORazepam 0.5 MG TAB PO PRN
[2019-08-08] MEDS ORDERED: ACETAMINOPHEN 325 MG TAB PO PRN
--- NOTE | 2019-08-08 01:03 | NUR ---
Telemetry admit from ER YAELTEE admitted to Telemetry unit after SBAR received. Patient oriented to Iván Marcano, primary RN, unit, room, bed, and unit policies regarding patient care and visiting hours. Patient now on continuous telemetry monitoring, tele box # 81 and telemetry reading on arrival to unit is SR 96. Patient placed on bedside oxygen, weighed by bedscale and encouraged to call if they need something. All questions and concerns addressed, patient verbalized understanding.
[2019-08-08 01:27] VITALS: BP 130/81
[2019-08-08 05:00] VITALS: BP 117/85
[2019-08-08] MEDS: GABAPENTIN 100 MG CAP PO SCH ×3 (06:00→21:46)
[2019-08-08] MEDS: ONDANSETRON ODT 4 MG TAB PO SCH ×4 (06:00→21:47)
[2019-08-08] MEDS: SODIUM CHLORIDE 0.9% 1,000 ML IV SCH ×2 (06:45→16:36)
[2019-08-08] MEDS: LEVOTHYROXINE SODIUM 50 MCG TAB PO SCH (06:45)
--- NOTE | 2019-08-08 07:30 | NUR ---
Opening Shift Note Assumed care of patient, who is alert and oriented x3. Patient needed re-orientation to time. No S/S of distress/SOB or pain. Bed is low, locked with 2x side rails up. Call light is within reach. Seizure precautions in place. Instructed on POC and to call for assist PRN, will continue to monitor for changes Q1hr and PRN.
[2019-08-08 08:04] VITALS: BP 131/92
[2019-08-08] MEDS: ALLOPURINOL 100 MG TAB PO SCH (09:19)
[2019-08-08] MEDS: LISINOPRIL 20 MG TAB PO SCH (09:19)
[2019-08-08] MEDS: HCTZ 25 MG TAB PO SCH (09:19)
[2019-08-08] MEDS: PROPRANOLOL HCL 20 MG TAB PO SCH ×2 (09:21→21:46)
--- NOTE | 2019-08-08 09:55 | NUR ---
Family At bedside. Updated brother Lang on POC. Patient expressing that he would like to leave because he stated that nothing is wrong with him. I advised him that he does have a Neurology consult pending and if he would like to leave it would be against medical advice. The patient verbalized understanding and stated he would wait a little while longer. Will continue to monitor.
[2019-08-08] MEDS ORDERED: PATIENTS OWN MEDICATION (Lisinopril & Hydrochlorothiazi (Lisinopril/Hydrochlorothi) 1 TAB) PO SCH (10:00)
[2019-08-08] MEDS ORDERED: TOPIRAMATE 25 MG TAB PO SCH (10:00)
--- NOTE | 2019-08-08 11:25 | NUR ---
Dr. Lorenzana Roundsavannah Updated patient on POC.
[2019-08-08] MEDS ORDERED: LORazepam 2MG/ML-1ML VIAL IV PRN (11:30)
[2019-08-08 12:13] VITALS: BP 117/93
[2019-08-08 15:52] LABS: Basophils # (auto) 0 uL; Basophils % (auto) 0.6 % (0.0-2.0); Eosinophils # (auto) 0 uL; Hemoglobin 11.3 g/dL (13.5-17.5); Lymphocytes # (auto) 0.9 uL; Lymphocytes % (auto) 19.4 % (10.0-50.0); Mean Corpuscular Hemoglobin 28.9 pg (28.0-32.0); Mean Corpuscular Hgb Conc. 32.3 g/dL (32.0-36.0); Mean Corpuscular Volume 89.4 fL (80.0-100.0); Monocytes # (auto) 0.6 uL; Monocytes % (auto) 12.1 % (0.0-12.0); Neutrophils # (auto) 3.1 uL; Neutrophils % (auto) 66.9 % (37.0-80.0); Platelet Count (auto) 174 10^3/uL (140-450); Red Blood Cells 3.92 10^6/uL (4.5-5.90); White Blood Cell 4.7 10^3/uL (4.4-10.8)
[2019-08-08 15:54] LABS: Red Cell Distribution Width 21.8 % (11.8-14.3)
[2019-08-08 16:08] LABS: Calcium 8.2 mg/dL (8.5-10.1); Potassium 3.7 mmol/L (3.5-5.1)
[2019-08-08 16:12] LABS: BUN/Creatinine Ratio 13.2
[2019-08-08 16:45] VITALS: BP 119/83
--- NOTE | 2019-08-08 20:00 | NUR ---
Opening Shift Note Assumed care of patient, awake and alert. No S/S of distress/SOB or pain. Instructed on POC and to call for assist PRN, will continue to monitor for changes Q1hr and PRN.
[2019-08-08] MEDS: levETIRAcetam 500 MG TAB PO SCH (21:46)
[2019-08-08] MEDS: HYDROcodone-ACET 5/325MG TAB PO PRN (21:47)
[2019-08-08 22:26] VITALS: BP 121/84
[2019-08-09] MEDS: ONDANSETRON ODT 4 MG TAB PO SCH ×2 (05:32→11:48)
[2019-08-09] MEDS: GABAPENTIN 100 MG CAP PO SCH ×2 (05:32→13:30)
[2019-08-09 06:17] VITALS: BP 134/68
[2019-08-09] MEDS: LEVOTHYROXINE SODIUM 50 MCG TAB PO SCH (06:19)
--- NOTE | 2019-08-09 07:30 | NUR ---
Opening Shift Note Assumed care of patient, who is alert and oriented x4. No S/S of distress/SOB or pain. Bed is low, locked with 2x side rails up. Call light is within reach. Seizure precautions in place. Instructed on POC and to call for assist PRN, will continue to monitor for changes Q1hr and PRN.
[2019-08-09 09:00] VITALS: BP 121/71
[2019-08-09] MEDS: SODIUM CHLORIDE 0.9% 1,000 ML IV SCH (09:16)
--- NOTE | 2019-08-09 09:25 | NUR ---
Medication Reconciliation Patient's brother Lang provided this nurse with medications that the patient is currently taking. Updated med rec.
[2019-08-09] MEDS: levETIRAcetam 500 MG TAB PO SCH ×2 (09:41→15:39)
[2019-08-09] MEDS: ALLOPURINOL 100 MG TAB PO SCH (09:41)
[2019-08-09] MEDS: PROPRANOLOL HCL 20 MG TAB PO SCH (09:43)
[2019-08-09] MEDS: HCTZ 25 MG TAB PO SCH (09:44)
[2019-08-09] MEDS: LISINOPRIL 20 MG TAB PO SCH (09:44)
[2019-08-09] MEDS: HYDROcodone-ACET 5/325MG TAB PO PRN (09:50)
[2019-08-09] MEDS ORDERED: OMEP-263 PO (10:34)
[2019-08-09] MEDS ORDERED: LISI-646 PO (10:34)
[2019-08-09] MEDS ORDERED: FERR-20 PO (10:34)
--- NOTE | 2019-08-09 12:11 | NUR ---
EEG- Electroencephalogram completed on 08/09/2019.
[2019-08-09 13:00] VITALS: BP 122/91
--- NOTE | 2019-08-09 14:00 | NUR ---
Dr. Salomón Doe Updated on POC. Patient to be discharged today.
[2019-08-09 15:14] VITALS: BP 122/91
--- NOTE | 2019-08-09 15:40 | NUR ---
Discharge instructions given as ordered. Encourage to follow up with PMD as instructed. All questions and concerns addressed. Patient verbalized understanding. IV removed with catheter intact, pressure dressing applied. Telemetry unit returned to ICU. Patient ambulated to vehicle with all personal belongings, accompanied by family member. No distress noted at time of departure.
== END 2019-08-09 15:38 | disposition home or self-care (01) | DRG 101 ==
LOC: EDBD 13:22 → ER 13:30 → TELE 13:31 → TELE-WESTW 08-08 01:41
PROVIDERS: ADMIT Hospitalist; ATTEND Hospitalist
DX: G40.909 Epilepsy, unspecified, not intractable, without status epilepticus (principal); G03.1 Chronic meningitis; G91.9 Hydrocephalus, unspecified; E03.9 Hypothyroidism, unspecified; F02.80 Dementia in other diseases classified elsewhere, unspecified severity, without behavioral disturbance, psychotic disturbance, mood disturbance, and anxiety; I10 Essential (primary) hypertension; K21.9 Gastro-esophageal reflux disease without esophagitis; M10.9 Gout, unspecified; Z79.899 Other long term (current) drug therapy; Z82.5 Family history of asthma and other chronic lower respiratory diseases; Z86.61 Personal history of infections of the central nervous system; Z83.79 Family history of other diseases of the digestive system; Z91.19 Patient's noncompliance with other medical treatment and regimen; Z98.2 Presence of cerebrospinal fluid drainage device; Z88.1 Allergy status to other antibiotic agents; Z88.0 Allergy status to penicillin
CPT/HCPCS: 36415; 70450; 72125; 80048; 80053; 80061; 80185; 80320; 84443; 85025; 95819; 96374; G0378; J7060; Q0162